=== PATIENT | male | born 1975 ===

== ENCOUNTER → 2018-07-04 21:23 | Outpatient (REF) | payer OTHER, SELFPAY ==
[2018-07-04 23:02] LABS: Vitamin D 25 Hydroxy (D3) 15.3 ng/mL (30.0-100.0)
[2018-07-04 23:43] LABS: Erythrocyte Sedimentation Rate 4 MM/HR (0-15)
[2018-07-05 15:44] LABS: C-Reactive Protein Quant 1.6 mg/dL (<1.0)
[2018-07-06 13:50] LABS: EBV Virus IgM Ab < 36.00 U/mL (< 36.00); EVB Early IgG 9.95 U/mL (< 9.00)
[2018-07-12 13:59] LABS: Testosterone Free 19.5; Testosterone Total 199
== END ==
LOC: LAB 21:23
PROVIDERS: Visit Provider Naturopath
DX: R53.82 Chronic fatigue, unspecified (principal)
CPT/HCPCS: 36415; 82306; 84402; 84403; 85651; 86140; 86663; 86664; 86665

== ENCOUNTER → 2018-08-29 22:02 | Outpatient (REF) | payer OTHER, SELFPAY ==
[2018-08-29 23:29] LABS: Alanine Aminotransferase 61 IU/L (21-72); Albumin 3.8 g/dL (3.5-5.0); Albumin Globulin Ratio 1.3 (1.0-2.8); Alkaline Phosphatase 78 U/L (38-126); Aspartate Aminotransferase 44 IU/L (17-59); BUN Creatinine Ratio 21.7 (6-22); Bilirubin Total 0.3 mg/dL (0.2-1.3); Blood Urea Nitrogen 13 mg/dL (9-20); C-Reactive Protein Quant 1.3 mg/dL (<1.0); Calcium 8.8 mg/dL (8.4-10.2); Carbon Dioxide 28 mmol/L (22-32); Chloride 103 mmol/L (98-107); Estimated Glomerular Filt Rate > 60.0 mL/min (>60); Glucose 120 mg/dL (70-100); HEMOLYSIS 21 (0-50); Potassium 4.3 mmol/L (3.4-5.1); Sodium 141 mmol/L (137-145); Total Protein 6.8 g/dL (6.3-8.2)
[2018-08-29 23:40] LABS: Erythrocyte Sedimentation Rate 5 MM/HR (0-15)
[2018-08-30 00:01] LABS: Hemoglobin A1C% w Est Avg Glu 5.6 % (4.0-6.0)
[2018-09-02 13:55] LABS: Testosterone Free 28.6 pg/mL (35.0-155.0); Testosterone Total 312 ng/dL (250-1100)
== END ==
LOC: LAB 22:02
PROVIDERS: Visit Provider Naturopath
DX: R74.8 Abnormal levels of other serum enzymes (principal); R79.89 Other specified abnormal findings of blood chemistry; R79.82 Elevated C-reactive protein (CRP)
CPT/HCPCS: 36415; 80053; 83036; 84402; 84403; 85651; 86140